=== PATIENT | female | born 1990 | race Two or more races ===

== ENCOUNTER 2017-09-14 09:54 | Emergency (ER) | payer MEDICAID ==
[~2017-09-14] VITALS: Ht 157.5 cm; Wt 54.4 kg
[2017-09-14 09:54] VITALS: BP 112/67
[2017-09-14] MEDS ORDERED: NAPR1TAB PO (10:07)
== END 2017-09-14 12:24 | disposition home or self-care (01) ==
LOC: ER 09:56
DX: J02.9 Acute pharyngitis, unspecified (principal)
CPT/HCPCS: 86403-TC; 87070-TC; A4606; Z7610